=== PATIENT | male | born 1935 | race Two or more races ===

== ENCOUNTER 2016-08-26 18:15 | Emergency (ER) | payer BC, MEDICARE ==
[~2016-08-26] VITALS: Ht 167.6 cm; Wt 66.1 kg
[2016-08-26] MEDS ORDERED: FENO145T32 PO (19:04)
[2016-08-26] MEDS ORDERED: AMLO5TAB2 PO (19:04)
[2016-08-26] MEDS ORDERED: ASPI-515 PO (19:04)
[2016-08-26] MEDS ORDERED: SODIUM CHLORIDE 0.9% 1,000ML IVBOLUS ONE (19:30)
[2016-08-26] MEDS ORDERED: SODIUM CHLORIDE FLUSH 10ML SYR IVF ONE (19:30)
[2016-08-26 19:50] LABS: ASPARTATE AMINO TRANSFERASE 18 U/L (15-37); BLOOD UREA NITROGEN 17 mg/dL (7-18)
[2016-08-26 19:51] LABS: IS PT STATUS REG ER OR PRE ER? YES
[2016-08-26 21:50] VITALS: BP 147/53
[2016-08-26] MEDS ORDERED: IBUP-1222 PO (22:31)
== END 2016-08-26 23:12 | disposition home or self-care (01) ==
LOC: ED 20:10 → UNDOADMIN 20:32 → EDIP 20:32 → ED 23:12
DX: J98.4 Other disorders of lung (principal); I10 Essential (primary) hypertension; E78.00 Pure hypercholesterolemia, unspecified; F17.210 Nicotine dependence, cigarettes, uncomplicated
CPT/HCPCS: 36415; 71020; 80053; 84484; 85025; 93005

== ENCOUNTER 2017-05-16 12:39 | Emergency (ER) | payer OTHER, MEDICARE ==
[~2017-05-16] VITALS: Ht 167.6 cm; Wt 68.4 kg
[~2017-05-16 12:39] MED LIST: AMLO5TAB2 PO; ASPI-515 PO; FENO145T32 PO; IBUP-1222 PO
[2017-05-16 13:12] LABS: BASOPHILS # (AUTO) 0.03 x10^3/uL (0-0.1); BASOPHILS % (AUTO) 0 % (0-1); EOSINOPHILS # (AUTO) 0.42 x10^3/uL (0-0.4); EOSINOPHILS % (AUTO) 5 % (1-7); LYMPHOCYTES # (AUTO) 2.53 x10^3/uL (1-3.4); LYMPHOCYTES % (AUTO) 30 % (22-44); MD NO; MEAN CORPUSCULAR HEMOGLOBIN 32.9 pg (27.5-34.5); MEAN CORPUSCULAR HGB CONC 33.8 g/dL (33.2-36.2); MEAN CORPUSCULAR VOLUME 97.5 fL (81-97); MEAN PLATELET VOLUME 8.4 fL (7.4-10.4); MONOCYTES # (AUTO) 0.35 x10^3/uL (0.2-0.8); MONOCYTES % (AUTO) 4 % (2-9); NEUTROPHILS # (AUTO) 5.05 x10^3/uL (1.8-6.8); NEUTROPHILS % (AUTO) 60 % (42-75); PLATELET COUNT 241 x10^3/uL (130-400); RED BLOOD COUNT 4.89 x10^6/uL (4.38-5.82); RED CELL DISTRIBUTION WIDTH 13.2 % (9.4-14.8)
[2017-05-16 13:20] LABS: ALBUMIN 4.3 g/dL (3.4-5.0); ANION GAP 7 mmol/L (5-15); CALCIUM 9.3 mg/dL (8.5-10.1); CHLORIDE 110 mmol/L (98-107); CREATININE 0.86 mg/dL (0.7-1.3)
[2017-05-16 13:24] LABS: TROPONIN I < 0.015 ng/mL (0.000-0.045)
[2017-05-16] MEDS ORDERED: FENO200C PO (13:50)
[2017-05-16] MEDS ORDERED: MECLIZINE CHEWABLE 25 MG TAB PO ONE (14:30)
[2017-05-16] MEDS ORDERED: MECLIZINE CHEWABLE 25 MG TAB ONE (14:57)
[2017-05-16 15:14] VITALS: BP 152/85
== END 2017-05-16 15:17 | disposition home or self-care (01) ==
LOC: ED 15:11
DX: H81.11 Benign paroxysmal vertigo, right ear (principal); I10 Essential (primary) hypertension; E78.00 Pure hypercholesterolemia, unspecified; F17.210 Nicotine dependence, cigarettes, uncomplicated
CPT/HCPCS: 36415; 71045; 80048; 82040; 84484; 85025; 93005; 99285